=== PATIENT | male | born 1960 | race American Indian/Alaskan Native ===

== ENCOUNTER 2018-11-04 10:49 | Outpatient (CLI) | payer OTHER ==
--- NOTE | 2018-11-04 11:41 | XRay Report ---
LEFT SHOULDER: History: Pain. Routine views demonstrate normal bony and soft tissue structures with normal joint alignment of the shoulder. IMPRESSION: Unremarkable left shoulder films.
--- NOTE | 2018-11-04 11:41 | XRay Report ---
LEFT HIP, 2 views: History: Pain. The bony architecture is intact without evidence of fracture or dislocation. No significant soft tissue abnormality is seen. IMPRESSION: Left hip within normal limits.
== END 2018-11-04 10:50 | disposition home or self-care (01) ==
LOC: XRAY 10:49
PROVIDERS: ATTEND Internal Medicine
DX: M25.552 Pain in left hip (principal); M25.512 Pain in left shoulder; K21.9 Gastro-esophageal reflux disease without esophagitis; J43.9 Emphysema, unspecified